=== PATIENT | male | born 1990 | race Caucasian/White ===

== ENCOUNTER 2024-06-13 10:31 | Outpatient (AMB) | payer MEDICAID, SELFPAY ==
[2024-06-13 11:18] VITALS: BP 120/82; PULSE 65; RESP 18; TEMP 36.6; O2SAT 97; BMI 30.9
--- NOTE | 2024-06-13 11:18 | PD.ORTHCLVIS ---
Vital signs 06/13/24 11:18 Height 1.85 m Height Method Stated Weight 105.715 kg Weight Measurement Method Standing Scale BMI 30.9 BP 120/82 Blood Pressure Source Automatic Cuff Blood Pressure Location Left Upper Arm Position Sitting Respiration 18 Pulse 65 Pulse Source Monitor Temp 97.8 F Temp Source Temporal Artery Scan Pulse Oximetry (%) 97 Oxygen Delivery Method Room Air Med/Allergies Allergies & Medications Allergies amoxicillin Allergy (Severe, Verified 06/13/24 11:20) Hives Medication Reconciliation omeprazole 20 mg capsule,delayed release 40 mg PO QDAY PRN REFLUX ##30 12/18/15 [History Confirmed 06/13/24] ibuprofen 800 mg tablet 800 mg PO Q8H #30 tabs 02/14/20 [Rx Confirmed 06/13/24] tramadol 50 mg tablet 50 mg PO BID PRN pain #8 tabs 02/21/21 [Rx Confirmed 06/13/24] tramadol 37.5 mg-acetaminophen 325 mg tablet (Ultracet) 1 tab PO TID PRN pain #15 tabs 01/04/22 [Rx Confirmed 06/13/24] ibuprofen 800 mg tablet 800 mg PO TID PRN pain #30 tabs 03/27/24 [Rx Confirmed 06/13/24] Subjective Visit Visit for: new patient and knee (BILATERAL) Immunization / Flu Flu Vaccine in the Last 12 Months: No Flu Vaccine Exclusion Criteria: Refused by Patient History of Present Illness Chief complaint: BILATERAL KNEE PAIN/REFERRAL Patient is a pleasant 33-year-old male who is seeing me a couple years ago in the past. He has had over 7 surgeries in each knee and has significant cartilage loss. I am hesitant to perform a knee replacement given his age. He previously had 2 referrals to a cartilage hoahaoism specialist but they both unfortunately retired before he was able to see him. His primary care doctor is still working on getting him to one of them. We discussed with him that this is typically a very specialized procedure and that this may have to be done at a tertiary care center. He is not a great candidate for joint replacement given his age and would much rather benefit from a cartilage hoahaoism procedure. He has had multiple injections in the past and they are no longer working. He is also tried anti-inflammatories and meloxicam as well as extensive physical therapy. He has tried bracing on the past but has not had new ones recently and he believes that this would help him significantly with his current profession. Personal History Occupation: LICENSING COORDINATOR Pain Pain level (0-10): 5 Pain duration: CONSTANT Pain location: inside (medial), outside (lateral), anterior and posterior Pain quality: sharp, dull and aching Pain timing: night, increases with activity and stairs Associated signs & symptoms: none Ambulatory data Ambulatory device: none Treatments Number of previous injections: 6 Improvement with previous injections: No Number of Physical Therapy sessions: 24 Improvement with PT: No Improvement with NSAIDS: no Review of Systems Review of Systems: All systems negative unless otherwise noted in HPI. Assessment and Plan Problem List (1) Pain in right knee: Status: Acute Plan: So the patient is a 33-year-old male with multiple surgeries in each knee with Significant chondral damage. He should see a Cartilage hoahaoism specialist and has been having difficulty getting into see one. I discussed with him that this is typically a very specialized procedure and that I would recommend this over total knee replacement given his age. We continue to recommend a cartilage hoahaoism specialist. We are giving him braces as well as for his knee to help with the pain and for some stability (2) Knee pain: Status: Acute Office Procedures GNS Level of Care Nursing/Assessment Patient Status: Initial/New Patient Nursing Assessment/Reassesment: Medication Reconciliation, Update PMH in EMR and Vital Signs Coordination of Care: Complex Care and Chronic Disease 1-5, Education Complex Pt/Fam, Consent,records obtained, informed consent, 1 Ins Authorization, Lab and Imaging orders, Results/Orders obtained and Staff clarify orders New Patient Charge New Patient Point Assignment: 1124 New Patient Point Charge: INSOLE COVERER Level 4 ([id number]) Past Medical History Past Medical History Have you ever been diagnosed with any of the following: Neurological Problems Seizures: Yes (last one on 06/2019 DUE TO FALL) Migraine: Yes Head Trauma: Yes (2019 DUE TO FALL ER VISIT ONLY) Cardiology Problems Congestive Heart Failure: No Respiratory Problems Chronic Obstructive Pulmonary Disease (COPD): No Tuberculosis: No Pulmonary Embolism: No Sleep Apnea: No Smoking: No Smoking Exposure: No Stomache/Intestinal Problems Hepatitis: No Ulcer: Yes Gastroesophageal Reflux Disease: Yes Genital/Urinary Problems Renal Disease: No Musculoskeletal Problems Arthritis: Yes Degenerative Joint Disease: Yes Endocrine Problems Diabetes Mellitus Type 1: No Diabetes Mellitus Type 2: No Other Problems Hospitalization: No Shingles: No Falls: No Blood Transfusions: No Anesthesia Reactions: No Chemotherapy: No Radiation Therapy: No MRSA: No Chicken Pox: Yes Measles: No Mumps: No Cancer: No
== END 2024-06-13 11:46 | disposition home or self-care (01) ==
LOC: HODSRG 10:31
PROVIDERS: Supervising Provider Orthopaedic Surgery Adult Reconstructive Orthopaedic Surgery; Visit Provider Orthopaedic Surgery Adult Reconstructive Orthopaedic Surgery
DX: M25.561 Pain in right knee (principal)
CPT/HCPCS: 99204; G0463

== ENCOUNTER 2024-06-28 18:53 | Emergency (ER) | payer MEDICAID, SELFPAY ==
[2024-06-28 19:58] VITALS: BP 120/67; PULSE 88; RESP 18; TEMP 36.6; O2SAT 99
--- NOTE | 2024-06-28 20:07 | XR_ITS ---
Examination: Knee, left , 3 views Technique: Knee AP, lateral, oblique 3 views Date and time of exam: June 28, 20242014 hrs. Indications: Patient fell last week with injury to the knee, knee pain. Findings: Adequate bone density No acute fracture No dislocation Impression: No acute fracture
--- NOTE | 2024-06-28 20:33 | EDNOTE_ITS ---
Lower Extremity Injury RME/HPI General Chief Complaint: Extremity Injury, Lower Stated Complaint: fell last Wednesday approx 9'. want xray left knee Time Seen by Provider: 06/28/24 20:07 Arrival date/time: 06/28/24 18:53 34M with no significant PMH presents to ED with L knee pain after he fell 1 week ago. Patient has had previous surgeries on it and wants XR. Limitations: no limitations Related Data Home Medications ?Medication ?Instructions ?Recorded ?Confirmed omeprazole 20 mg capsule,delayed 40 mg PO QDAY PRN REFLUX ##30 12/18/15 06/13/24 release Previous Rx's ?Medication ?Instructions ?Recorded ibuprofen 800 mg tablet 800 mg PO Q8H #30 tabs 02/14/20 tramadol 50 mg tablet 50 mg PO BID PRN pain #8 tabs 02/21/21 tramadol 37.5 mg-acetaminophen 325 1 tab PO TID PRN pain #15 tabs 01/04/22 mg tablet (Ultracet) ibuprofen 800 mg tablet 800 mg PO TID PRN pain #30 tabs 03/27/24 Allergies Allergy/AdvReac Type Severity Reaction Status Date / Time amoxicillin Allergy Severe Hives Verified 06/28/24 18:55 Review of Systems Review of Systems Systems Reviewed: All systems reviewed, normal except as documented Constitutional Constitutional: Reports system reviewed and no additional complaints, except as documented, Denies fever(s) and Denies headache(s) ENT Ears, Nose, Mouth, and Throat: Denies disequilibrium and Denies headache(s) Cardiovascular Cardiovascular: Reports system reviewed and no additional complaints, except as documented, Denies chest pain and Denies dyspnea Respiratory Respiratory: Reports system reviewed and no additional complaints, except as documented, Denies cough and Denies dyspnea Gastrointestinal Gastrointestinal: Reports system reviewed and no additional complaints, except as documented, Denies abdominal pain, Denies nausea and Denies vomiting Musculoskeletal Musculoskeletal: Reports as per HPI and Reports arthralgias Neurologic Neurologic: Reports system reviewed and no additional complaints, except as documented, Denies confusion, Denies disequilibrium and Denies headache(s) Psychiatric Psychiatric: Denies confusion Past Medical History Past Medical History NEUROLOGIC: Positive Neurological Disorders, Seizures (last one on 06/2019 DUE TO FALL), Migraine and Head Trauma (2018 DUE TO FALL ER VISIT ONLY) CARDIAC: Negative Cardiac Disorders or Congestive Heart Failure RESPIRATORY: Negative Chronic Obstructive Pulmonary Disease (COPD), Tuberculosis, Pulmonary Embolism, Sleep Apnea, Smoking or Smoking Exposure GASTROINTESTINAL: Positive Gastrointestinal Disorders, Ulcer and Gastroesophageal Reflux Disease; Negative Hepatitis GENITOURINARY: Negative Genitourinary Disorders or Renal Disease MUSCULOSKELETAL: Positive Musculoskeletal Disorders (DJD bilateral knees), Arthritis and Degenerative Joint Disease ENT: Positive Head Trauma (2019 DUE TO FALL ER VISIT ONLY) ENDOCRINE: Negative Endocrine Disorders, Diabetes Mellitus Type 1 or Diabetes Mellitus Type 2 HEMATOLOGIC: Negative Blood Disorders OTHER HISTORY: Positive Chicken Pox; Negative Hospitalization, Autoimmune Disease, Shingles, Falls, Blood Transfusions, Anesthesia Reactions, Chemotherapy, Radiation Therapy, MRSA, Measles, Mumps or Cancer Family History FAMILY HISTORY: Positive Family Surgery (FATHER,MOTHER); Negative Family Psychiatric Problems, Family Respiratory Disorders, Family Cardiac Disorders, Family Gastrointestinal Problems, Family Cancer or Family Anesthesia Reaction Social History SMOKING STATUS: Never smoker ED Exam General Limitations: Present no limitations General appearance: Present alert and in no apparent distress Head Head exam: Present atraumatic Eye Eye exam: Present normal appearance, PERRL and EOMI ENT ENT exam: Present normal exam, normal oropharynx and mucous membranes moist Neck Neck exam: Present normal inspection, full ROM and trachea midline Chest Chest inspection: Present normal inspection and symmetric chest wall rise Respiratory Respiratory exam: Present normal lung sounds bilaterally Cardiovascular Cardiovascular exam: Present regular rate, normal rhythm and normal heart sounds Abdominal Exam Abdominal exam: Present soft and normal bowel sounds Extremities Exam Extremities exam: Present normal inspection and full ROM Back Exam Back exam: Present normal inspection and full ROM Neurological Exam Neurological exam: Present alert, oriented X3 and CN II-XII intact Psychiatric Psychiatric exam: Present normal affect and normal mood Skin Skin exam: Present warm, dry, intact and normal color Course Quality Measures none Orders Category Date Time Status XR knee LT 3V Stat Exams 06/28/24 20:07 Completed Vital Signs Vital signs: Vital Signs Temperature 98 F 06/28/24 19:58 Pulse Rate 88 06/28/24 19:58 Respiratory Rate 18 06/28/24 19:58 Blood Pressure 120/67 06/28/24 19:58 Pulse Oximetry (%) 99 06/28/24 19:58 Oxygen Delivery Method Room Air 06/28/24 19:58 O2 at 99% on RA and WNLs Extremity Injury, Lower MDM Narrative MDM Narrative:: 34M with no significant PMH presents to ED with L knee pain after he fell 1 week ago. Patient has had previous surgeries on it and wants XR. Physical exam reveals no L knee tenderness. Pain is with ROM, which is intact. Gait normal. XR normal. Patient data External records reviewed:: [facility] previous records Clinical information provided by:: patient Social determinants that could affect healthcare access:: none Patient has the following chronic illnesses:: none How is presenting disease/condition affected by chronic disease/condition?: no chronic disease Evaluation data The following diagnostics were reviewed and interpreted by me:: radiology exam(s) Lab and/or radiology exams considered but not ordered:: ordered Interpretation Summary: above Medications / Prescriptions Medications or Prescriptions considered but not ordered:: not ordered Medication administrations:: n/a Consultations Consultation(s) initiated? (list below): No Diagnosis Extremity Injury, Lower Differential Diagnosis: ankle sprain and strain, acute internal derangement of knee, puncture wound of foot, fracture of toe, ankle fracture and other (knee pain) Most likely diagnosis given after review of the tests above:: knee pain Admission Indicated Admission indicated?: not indicated Admission Request Was there a request for admission?: No Disposition Plan Disposition Plan: Discharge Discharge Attestation Discharge Attestation: The patient and all family members were given an opportunity to ask questions and understood the discharge instructions. Discharge instructions specifically effects, indications for sooner follow up or return to the emergency department, and the expected course of current diagnosis. Patient condition: Stable Discharge Plan Plan Patient Disposition: HOME (Self Care) Disposition Comment: Stable Prescriptions/Referrals Prescriptions/Med Rec: No Action ibuprofen 800 mg tablet 800 mg PO Q8H Qty: 30 0RF omeprazole 20 MG capsule,delayed release(DR/EC) 40 mg PO QDAY PRN (Reason: REFLUX) Qty: 30 tramadol 50 mg tablet 50 mg PO BID PRN (Reason: pain) Qty: 8 0RF tramadol-acetaminophen [Ultracet] 37.5-325 mg tablet 1 tab PO TID PRN (Reason: pain) Qty: 15 0RF ibuprofen 800 mg tablet 800 mg PO TID PRN (Reason: pain) Qty: 30 0RF Referrals: Nj Martínez PA-C [Primary Care Provider] - In 1 week Problem List Clinical Impression: Knee pain Patient/Caregiver Discharge Instructions Additional Instructions: Please follow-up with PCP within 24-48 hours and return immediately if symptoms worsen. If problem persists, recommend outpatient PT and/or MRI follow-up. In the meantime, rest, use ice/heat, and/or compression. Print Language: Spanish Stand Alone Forms: Work/School Release, Patient Portal Info Letter PA/CLINICAL ACCOUNT EXECUTIVE Supervising Physician PA/CLINICAL ACCOUNT EXECUTIVE Supervising Physician: Dr. West
== END 2024-06-28 21:36 | disposition home or self-care (01) ==
PROVIDERS: Emergency Provider Emergency Medicine; PCP Physician Assistant
DX: S89.92XA Unspecified injury of left lower leg, initial encounter (principal); W19.XXXA Unspecified fall, initial encounter
CPT/HCPCS: 73562; 99283

== ENCOUNTER 2024-11-13 20:42 | Emergency (ER) | payer MEDICAID, SELFPAY ==
[2024-11-13 20:43] VITALS: BMI 33.2
[2024-11-13 21:33] VITALS: BP 116/74; PULSE 75; RESP 18; TEMP 36.4; O2SAT 95
--- NOTE | 2024-11-13 21:37 | XR_ITS ---
Examination: Testicular sonography complete Technique: Grayscale sonographic images testes, assessment arterial inflow venous outflow, Doppler spectral analysis and color flow analysis Exam date and time: November 13, 2024, 0 hrs. Indications: Injury to the scrotum one day ago with swelling and pain Findings: Right testis 5.0 cm epididymis 14 mm 9 mm epididymal cyst Arterial flow testicle. No testicular mass Left testis 5.0 cm epididymis 14 mm 4 mm epididymal cyst Appendix testis 11 mm Arterial flow testicle. No testicular mass Impression: No testicular torsion No testicular hematoma or mass
--- NOTE | 2024-11-13 21:40 | PD.EDMALE ---
ED Male Genitalurinary RME/HPI General Chief complaint: Urogenital-Male Stated complaint: GROIN PAIN Time Seen by Provider: 11/13/24 21:31 Arrival date/time: 11/13/24 20:42 34 year old male present to emergency room with c/o of right testicular injury yesterday. pt report son accidentally kick soccer ball into groin. patient able to urinated without complications but did notice some blood that since cleared up. LOCATION: groin SEVERITY: Symptoms are described as being severe with limitations on activities of daily living QUALITY: Symptoms are described as being throbbing/sharp CONTEXT: The patient is unable to identify any inciting events. DURATION/TIMING: The symptoms started approximately one day ago and have been waxing/waning but always present without ever completely resolving. ASSOCIATED SYMPTOMS: The patient is unable to identify any other associated symptoms. MODIFYING FACTORS: The patient is unable to identify any alleviating or aggravating symptoms. PERTINENT ROS: no fevers, no anorexia, no nausea or vomiting, no diarrhea, no ripping or tearing sensations, no syncope or presyncopal symptoms, denies trauma, denies genital pain REVIEW OF SYSTEMS: See History of Present Illness - with the exception of those mentioned in the history of present illness, all other systems reviewed and reported as negative GENERAL: In general the patient is awake, interactive, in an emergency department gurney. HEAD/EYES/EARS/NOSE/THROAT: normo-cephalic, atraumatic, mucus membranes are moist, anicteric, palpebral conjunctiva is pink, trachea is midline. CARDIOVASCULAR: regular rate and regular rhythm, no murmurs, heart sounds are not distant, strong pulses in all four extremities that are equal and symmetric bilateral upper and lower extremities, normal capillary refill. CHEST/PULMONARY: normal chest rise and fall, good air movement, clear to auscultation bilaterally, normal inspiratory to expiratory ratios without evidence of respiratory distress. NECK: No midline/Paraspinal tenderness, no step off ROM/Strenght intact No Kernig and bruzinski sign. No trauma ABDOMEN: soft, not tender, no masses appreciated BACK: normal range of motion without pain. : +right testicular tenderness. NEUROLOGICAL: cranio-facial features are symmetric, moves all four extremities equally without obvious limitations or weakness. EXTREMITY: no tenderness to palpation over the long bones or large joints of the bilateral upper and lower extremities, no joint swelling, no joint erythema, no signs of trauma, no unilateral leg swelling and no peripheral edema. SKIN: warm, dry, well-perfused, no jaundice, no rash, no telangiectasias or petechia. PSYCH: calm, cooperative, no evidence of psychosis or agitation Related Data Home Medications ?Medication ?Instructions ?Recorded ?Confirmed omeprazole 20 mg capsule,delayed 40 mg PO QDAY PRN REFLUX ##30 12/17/06/13/24 release Previous Rx's ?Medication ?Instructions ?Recorded ibuprofen 800 mg tablet 800 mg PO Q8H #30 tabs 02/14/20 tramadol 50 mg tablet 50 mg PO BID PRN pain #8 tabs 02/21/21 tramadol 37.5 mg-acetaminophen 325 1 tab PO TID PRN pain #15 tabs 01/04/22 mg tablet (Ultracet) ibuprofen 800 mg tablet 800 mg PO TID PRN pain #30 tabs 03/27/24 Allergies Allergy/AdvReac Type Severity Reaction Status Date / Time amoxicillin Allergy Severe Hives Verified 11/13/24 20:45 Course Course Course Narrative: US: Impression: No testicular torsion No testicular hematoma or massUrine: no infection The patient is suffering from testicular pain, but based on the history, exam, and testing, I do not suspect that the patient has testicular torsion, abscess, severe cellulitis, Jayro?s gangrene, or other emergent cause. UA unremarkable US Scrotum: no acute findings? exam consisted to contusion? Disposition: Plan follow up with primary care doctor for symptom re-check and possible referral to urology. Discussed return precautions at bedside. Discharge. Quality Measures none Orders Category Date Time Status US scrotum Stat Exams 11/13/24 21:37 Completed UA [Urinalysis] Stat Lab 11/13/24 21:50 Completed Ibuprofen Tab [Motrin Tab] Med 11/13/24 21:37 Discontinued 800 mg PO X1 ONE Reevaluation(s) Reevaluation #1: pain improved Vital Signs Vital signs: Vital Signs Temperature 97.6 F 11/13/24 21:33 Pulse Rate 75 11/13/24 21:33 Respiratory Rate 18 11/13/24 21:33 Blood Pressure 116/74 11/13/24 21:33 Pulse Oximetry (%) 95 11/13/24 21:33 Oxygen Delivery Method Room Air 11/13/24 21:33 Urogenital - Male Patient data External records reviewed:: [facility] previous records Clinical information provided by:: patient Social determinants that could affect healthcare access:: none Patient has the following chronic illnesses:: n/a How is presenting disease/condition affected by chronic disease/condition?: no chronic disease Evaluation data The following diagnostics were reviewed and interpreted by me:: lab results and radiology exam(s) Lab and/or radiology exams considered but not ordered:: n/a Interpretation Summary: US: no acute findings UA: no infection Medications / Prescriptions Medications or Prescriptions considered but not ordered:: n/a Medication administrations:: Medication Administration History Discontinued Medications Ibuprofen (Ibuprofen Tab 400 Mg Tablet) 800 mg PO X1 ONE Stop: 11/13/24 21:38 Last Admin: 11/13/24 22:39 Dose: 800 mg Documented By: APRIL as stated above Consultations Consultation(s) initiated? (list below): No Diagnosis Urogenital Male Differential Diagnosis: urinary tract infection and other (torsion, contusion, ) Most likely diagnosis given after review of the tests above:: testicular pain Admission Indicated Admission indicated?: not indicated Admission Request Was there a request for admission?: No Disposition Plan Disposition Plan: Discharge Discharge Attestation Discharge Attestation: The patient and all family members were given an opportunity to ask questions and understood the discharge instructions. Discharge instructions specifically effects, indications for sooner follow up or return to the emergency department, and the expected course of current diagnosis. Patient condition: Stable Discharge Plan Plan Patient Disposition: HOME (Self Care) Health Concerns: Follow with PMD as directed Take tylenol or motrin as need Return to ED if sx worsen Prescriptions/Referrals Prescriptions/Med Rec: No Action ibuprofen 800 mg tablet 800 mg PO Q8H Qty: 30 0RF omeprazole 20 MG capsule,delayed release(DR/EC) 40 mg PO QDAY PRN (Reason: REFLUX) Qty: 30 tramadol 50 mg tablet 50 mg PO BID PRN (Reason: pain) Qty: 8 0RF tramadol-acetaminophen [Ultracet] 37.5-325 mg tablet 1 tab PO TID PRN (Reason: pain) Qty: 15 0RF ibuprofen 800 mg tablet 800 mg PO TID PRN (Reason: pain) Qty: 30 0RF Referrals: No Primary/Family,Physician [Primary Care Provider] - In 1 week Problem List Clinical Impression: Testicular pain Patient/Caregiver Discharge Instructions Education Materials: ED Contusion, Testicles or Scrotum Print Language: Kinyarwanda Stand Alone Forms: [employer] Award Info., Patient Portal Info Letter
[2024-11-13 22:06] LABS: Collection Type, Urine Voided; Squamous Epithelial Cell,Urine 0 /hpf (0-5)
[2024-11-13 22:25] LABS: Bilirubin,Urine Negative (Negative); Blood,Urine Negative (Negative); Clarity,Urine Clear (Clear/Hazy); Color,Urine Lt-Yellow (Lt Yel-Yel); Glucose, Urine Negative (Negative); Ketones,Urine Negative (Negative); Leukocyte Esterase,Urine Negative (Negative); Nitrite,Urine Negative (Negative); Protein,Urine Negative (Neg - Trace); RBC,Urine 4 /hpf (0-3); Specific Gravity,Urine 1.028 (1.001-1.035); Urobilinogen,Urine Negative mg/dL (0.0-1.0); WBC,Urine 1 /hpf (0-5)
[2024-11-13] MEDS: IBUPROFEN TAB 400 MG TABLET 800 MG PO (22:39)
== END 2024-11-13 23:24 | disposition home or self-care (01) ==
PROVIDERS: Physician Assistant; Emergency Provider Emergency Medicine
DX: N50.811 Right testicular pain (principal)
CPT/HCPCS: 76870; 81001; 99284; A9270

== ENCOUNTER 2025-07-24 17:28 | Emergency (ER) | payer MEDICAID, SELFPAY ==
--- NOTE | 2025-07-24 | XR_ITS ---
Examination: CT lumbar spine, without contrast. 2-D sagittal reconstructions. 2-D coronal reconstructions. 3-D reconstructions. Date and time of exam: July 24, 2025, 1937 hours INDICATIONS: Back pain radiating down the right leg today CTDI: vol (mGy): 22.6 DLP: (mGycm): 753 Technique: Multiple 1.25 mm axial sections of the lumbar spine without intravenous contrast have been obtained. 2-D sagittal and coronal reconstructions have been obtained. 3-D reconstructions have been obtained. Low dose protocols were performed. One or more of the following dose reduction techniques were used; automated exposure control, adjustment of the mA and/or KV according to patient size, use of iterative reconstruction technique. Findings: Satisfactory limit lumbar vertebral bodies. No lumbar fracture. Mild disc narrowing posteriorly L4-L5. Lumbar pedicles laminae transverse and posterior spinous processes intact L5-S1 4 mm central left paracentral disc bulge contiguous with the left S1 nerve. L4-L5 2 mm calcified central lumbar disc bulge More cephalad levels unremarkable IMPRESSION: L5-S1 4 mm central left paracentral disc bulge contiguous with the left S1 nerve root L4-L5 2 mm calcified central lumbar disc bulge
[2025-07-24 18:04] VITALS: BP 122/83; PULSE 81; RESP 18; TEMP 36.6; O2SAT 97; BMI 27.6
[2025-07-24] MEDS: KETOROLAC INJ 60 MG/2 ML VIAL IM (19:20)
[2025-07-24] MEDS: HYDROcodone/APAP 5/325 TABLET 1 TAB PO (19:21)
--- NOTE | 2025-07-24 20:36 | PD.EDRME ---
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 and started to have pain on the lower back radiating to his both lower extremities due to worsening of the pain this patient decided to start consulted in the emergency room Chief Complaint: Back Pain/Injury Time Seen by Provider: 07/24/25 18:07 Vital signs: Vital Signs Temperature 98 F 07/24/25 18:04 Pulse Rate 81 07/24/25 18:04 Respiratory Rate 18 07/24/25 18:04 Blood Pressure 122/83 07/24/25 18:04 Pulse Oximetry (%) 97 07/24/25 18:04 Oxygen Delivery Method Room Air 07/24/25 18:04 Exam: Mild to moderate tenderness lumbar area no crepitation no deformity ROM limited to pain Clinical Impression: Lower back pain
--- NOTE | 2025-07-25 00:51 | EDNOTE_ITS ---
ED Back Injury Pain RME/HPI General Chief Complaint: Back Pain/Injury Stated Complaint: SLIPPED DISC Time Seen by Provider: 07/24/25 18:07 Arrival date/time: 07/24/25 17:28 RME / HPI RME / HPI Narrative: 07/24/25 17:28 This is a case of 35-year-old male who came into the emergency room due to lower back pain patient states that he carry a heavy dog and started to have pain on the lower back radiating to his both lower extremities due to worsening of the pain this patient decided to start consulted in the emergency room Dr. Pastrana?s Main ED Evaluation: 35yo male presents to the ED for a chief complaint of lower back pain. Patient states he was lifting a heavy dog when he started having sudden lower back pain that radiates down his right leg. Patient denies any falls. Patient denies any numbness, tingling, incontinence, or any other associated symptoms. Denies any history of similar symptoms. Related Data Home Medications ?Medication ?Instructions ?Recorded ?Confirmed omeprazole 20 mg capsule,delayed 40 mg PO QDAY PRN REF LUX ##30 12/17/16 06/13/24 release Previous Rx's ?Medication ?Instructions ?Recorded ibuprofen 800 mg tablet 800 mg PO Q8H #30 tabs 02/13 tramadol 50 mg tablet 50 mg PO BID PRN pain #8 tab s 02/21/21 tramadol 37.5 mg-acetaminophen 325 1 tab PO TID PRN pa in #15 tabs 01/04/22 mg tablet (Ultracet) ibuprofen 800 mg tablet 800 mg PO TID PRN pain #30 t abs 03/27/24 hydrocodone 10 mg-acetaminophen 1 tab PO Q6H PRN pain #20 tabs 07/25/25 325 mg tablet naproxen 500 mg tablet (Naprosyn) 500 mg PO BID PRN pa in #30 tabs 07/25/25 Allergies Allergy/AdvReac Type Severity Reaction Status Date / Time amoxicillin Allergy Severe Hives Verified 07/24/25 17:30 Review of Systems Review of Systems Systems Reviewed: All systems reviewed, normal except as documented Past Medical History Past Medical History NEUROLOGIC: Positive Neurological Disorders, Seizures (last one on 06/2019 DUE TO FALL), Migraine and Head Trauma (2019 DUE TO FALL ER VISIT ONLY) CARDIAC: Negative Cardiac Disorders or Congestive Heart Failure RESPIRATORY: Negative Chronic Obstructive Pulmonary Disease (COPD), Tuberculosis, Pulmonary Embolism, Sleep Apnea, Smoking or Smoking Exposure GASTROINTESTINAL: Positive Gastrointestinal Disorders, Ulcer and Gastroesophageal Reflux Disease; Negative Hepatitis GENITOURINARY: Negative Genitourinary Disorders or Renal Disease MUSCULOSKELETAL: Positive Musculoskeletal Disorders (DJD bilateral knees), Arthritis and Degenerative Joint Disease ENT: Positive Head Trauma (2019 DUE TO FALL ER VISIT ONLY) ENDOCRINE: Negative Endocrine Disorders, Diabetes Mellitus Type 1 or Diabetes Mellitus Type 2 HEMATOLOGIC: Negative Blood Disorders OTHER HISTORY: Positive Chicken Pox; Negative Hospitalization, Autoimmune Disease, Shingles, Falls, Blood Transfusions, Anesthesia Reactions, Chemotherapy, Radiation Therapy, MRSA, Measles, Mumps or Cancer Family History FAMILY HISTORY: Positive Family Surgery (FATHER,MOTHER); Negative Family Psychiatric Problems, Family Respiratory Disorders, Family Cardiac Disorders, Family Gastrointestinal Problems, Family Cancer or Family Anesthesia Reaction Social History SMOKING STATUS: Current every day smoker ED Exam Narrative Physical exam: Generally patient is alert oriented x 3 mild distress secondary to pain, heart regular rate and rhythm, lungs clear to auscultation equal bladder, abdomen soft bowel sounds present nondistended nontender, musculoskeletal exam shows the patient have bilateral sacroiliac joint tenderness with negative straight leg raising tenderness bilaterally, neurologic exam shows no focal motor deficits Course Quality Measures none Orders Category Date Time Status CT lumbar spine wo con Stat Exams 07/24/25 00:00 Completed HYDROcodone*/APAP 5/325 [Haxtun 5/325] Med 07/24/25 18:08 Discontinued 1 tab PO X1 ONE Ketorolac Inj [Toradol Inj] Med 07/24/25 18:08 Discontinued 60 mg IM X1 ONE Vital Signs Vital signs: Vital Signs Temperature 98 F 07/24/25 18:04 Pulse Rate 81 07/24/25 18:04 Respiratory Rate 18 07/24/25 18:04 Blood Pressure 122/83 07/24/25 18:04 Pulse Oximetry (%) 97 07/24/25 18:04 Oxygen Delivery Method Room Air 07/24/25 18:04 Back Pain / Injury MDM Narrative MDM Narrative:: Scribe Attestation: 07/25/25 - Thalia Ortiz am scribing for and in the presence of Dr. Pastrana. Patient has no fecal or urinary retention or incontinence. Prior to my examination patient underwent a CT scan of the lumbar spine without contrast and it shows 2 small disc bulges at L4-L5 and L5-S1. Prior to my evaluation the patient had received Toradol 60 mg IM and Haxtun 10 mg p.o. Patient will be discharged on Naprosyn and Haxtun to be taken as prescribed. Apply warmth to painful areas. He may also use pain patches as needed. Follow-up with his doctor. Return to ER as needed or if condition worsens. Patient data External records reviewed:: [facility] previous records (Per chart review, patient was seen here on 11/13/24 for testicular pain.) Clinical information provided by:: patient Social determinants that could affect healthcare access:: none Patient has the following chronic illnesses:: none How is presenting disease/condition affected by chronic disease/condition?: no chronic disease Evaluation data The following diagnostics were reviewed and interpreted by me:: radiology exam(s) Lab and/or radiology exams considered but not ordered:: none Interpretation Summary: [facility] Report Signed Patient: MILTON KEATING [facility]. Record#: [id number] Birthdate: 1990 Age/Sex: 35 / M Location: [facility] Attending Dr: Ordering Physician: Soledad Badillo Date of Service: 07/24/25 Procedure(s): CT lumbar spine wo con Accession Number(s): [id number] cc: Leif Del Real MD; Jose Whiting MD; Soledad Badillo~ Examination: CT lumbar spine, without contrast. 2-D sagittal reconstructions. 2-D coronal reconstructions. 3-D reconstructions. Date and time of exam: July 24, 2025, 1937 hours INDICATIONS: Back pain radiating down the right leg today CTDI: vol (mGy): 22.6 DLP: (mGycm): 753 Technique: Multiple 1.25 mm axial sections of the lumbar spine without intravenous contrast have been obtained. 2-D sagittal and coronal reconstructions have been obtained. 3-D reconstructions have been obtained. Low dose protocols were performed. One or more of the following dose reduction techniques were used; automated exposure control, adjustment of the mA and/or KV according to patient size, use of iterative reconstruction technique. Findings: Satisfactory limit lumbar vertebral bodies. No lumbar fracture. Mild disc narrowing posteriorly L4-L5. Lumbar pedicles laminae transverse and posterior spinous processes intact L5-S1 4 mm central left paracentral disc bulge contiguous with the left S1 nerve. L4-L5 2 mm calcified central lumbar disc bulge More cephalad levels unremarkable IMPRESSION: L5-S1 4 mm central left paracentral disc bulge contiguous with the left S1 nerve root L4-L5 2 mm calcified central lumbar disc bulge Dictated By: Jose Whiting MD Signed By: <Electronically signed by Jose Whiting MD in [place]> 07/24/25 3104 Medications / Prescriptions Medications or Prescriptions considered but not ordered:: none Medication administrations:: Medication Administration History Discontinued Medications Hydrocodone Bitart/Acetaminophen (Hydrocodone/Apap 5/325 Tablet) 1 tab PO X1 ONE Stop: 07/24/25 18:09 Last Admin: 07/24/25 19:21 Dose: 1 tab Documented By: AGUSTÍN Ketorolac Tromethamine (Ketorolac Inj 60 Mg/2 Ml Vial) 60 mg IM X1 ONE Stop: 07/24/25 18:09 Last Admin: 07/24/25 19:20 Dose: 60 mg Documented By: AGUSTÍN see above Consultations Consultation(s) initiated? (list below): No Diagnosis Differential diagnosis back pain/injury: other (See MDM) Most likely diagnosis given after review of the tests above:: see clinical impression below Admission Indicated Admission indicated?: not indicated Admission Request Was there a request for admission?: No Disposition Plan Disposition Plan: Discharge Discharge Attestation Discharge Attestation: The patient and all family members were given an opportunity to ask questions an d understood the discharge instructions. Discharge instructions specifically effects, indications for sooner follow up or return to the emergency department, and the expected course of current diagnosis. Patient condition: Stable Discharge Plan Plan Patient Disposition: HOME (Self Care) Prescriptions/Referrals Prescriptions/Med Rec: New naproxen [Naprosyn] 500 mg tablet 500 mg PO BID PRN (Reason: pain) Qty: 30 0RF hydrocodone-acetaminophen 10-325 mg tablet 1 tab PO Q6H MDD 4 PRN (Reason: pain) Qty: 20 0RF No Action ibuprofen 800 mg tablet 800 mg PO Q8H Qty: 30 0RF omeprazole 20 MG capsule,delayed release(DR/EC) 40 mg PO QDAY PRN (Reason: REFLUX) Qty: 30 tramadol 50 mg tablet 50 mg PO BID PRN (Reason: pain) Qty: 8 0RF tramadol-acetaminophen [Ultracet] 37.5-325 mg tablet 1 tab PO TID PRN (Reason: pain) Qty: 15 0RF ibuprofen 800 mg tablet 800 mg PO TID PRN (Reason: pain) Qty: 30 0RF Referrals: Leif Del Real MD [Primary Care Provider, Family Practice] - In 1 week Problem List Clinical Impression: Sciatica Patient/Caregiver Discharge Instructions Education Materials: ED Sciatica Additional Instructions: Apply warm to painful areas. You may use [id number] pain patches as needed. Medications as prescribed. Follow-up with your doctor. Return to ER as needed or if condition worsens. Print Language: Filipino Stand Alone Forms: [facility]ly Award Info., Patient Portal Info Letter
[2025-07-25 01:07] VITALS: BP 112/80; PULSE 77; RESP 18; TEMP 36.4; O2SAT 98
== END 2025-07-25 01:20 | disposition home or self-care (01) ==
PROVIDERS: Emergency Provider Emergency Medicine; PCP Family Medicine
DX: M51.16 Intervertebral disc disorders with radiculopathy, lumbar region (principal); M51.17 Intervertebral disc disorders with radiculopathy, lumbosacral region
CPT/HCPCS: 72131; 96372; 99283; J1885; A9270